=== PATIENT | female | born 1990 | race Caucasian/White ===

== ENCOUNTER 2018-07-21 17:09 | Emergency (ER) | payer SELFPAY ==
[~2018-07-21] VITALS: Ht 162.6 cm; Wt 58.6 kg
[2018-07-21 17:13] VITALS: BP 122/69
--- NOTE | 2018-07-21 17:14 | NUR ---
28 YO F BIB FAMILY W/ C/O LEFT SIDED VAGINAL PAIN 8/10 AND SWELLING X 2 DAYS. PT ALSO STATES THAT SHE IS ON HER PERIOD AT THIS TIME, UNSURE IF SHE HAS ANY ABNORMAL DISCHARGE. DENIES N/V. AAOX4, GCS 15. PT JUST ARRIVED IN [place] [facility] 8 DAYS AGO. PT DENIES N/V/D; SKIN IS INTACT, PINK/WARM/DRY; AAOX4, PERRL, WITH EVEN AND STEADY GAIT; LUNGS CLEAR BL, BREATHING UNLABORED; HR EVEN AND REGULAR, BL PERIPHERAL PULSES PRESENT; BS ACTIVE X4. PT DENIES ANY FEVER, CP, SOB, OR COUGH AT THIS TIME; PT STATES 0/10 PAIN AT THIS TIME; VSS; PATIENT POSITIONED FOR COMFORT; HOB ELEVATED; BEDRAILS UP X2; BED DOWN. HX SAME ISSUE 2X, BEEN HOSPITALIZED BOTH TIMES RX DENIES
--- NOTE | 2018-07-21 18:30 | NUR ---
PT. RESTING COMFORTABLY IN BED, RR EVEN AND UNLABORED. FAMILY MEMBER AT BEDSIDE. WILL CONTINUE TO MONITOR.
[2018-07-21] MEDS ORDERED: HYDROcodone/APAP 5/325 MG 1 TAB TAB PO ONE (18:35)
[2018-07-21] MEDS ORDERED: LIDOCAINE 1% 500 MG/50 ML VIAL INJ SCH (18:35)
[2018-07-21] MEDS ORDERED: LIDOCAINE MPF 1% - 5 mL VIAL 5 ML ONE (18:43)
--- NOTE | 2018-07-21 19:10 | NUR ---
Pt report given to MITUL QUEEN . Transfer of care at this time.
--- NOTE | 2018-07-21 19:15 | NUR ---
RECEIVED REPORT FROM AM NURSE. PT RESTING COMFORTABLY IN BED. PT'S SIGNIFICANT OTHER AT BEDSIDE. ALL NEEDS MET AT THIS TIME.
--- NOTE | 2018-07-21 19:30 | NUR ---
NELLY VERA AT BEDSIDE
[2018-07-21 20:00] VITALS: BP 101/70
--- NOTE | 2018-07-21 20:00 | NUR ---
Patient discharged with v/s stable. Written and verbal after care instructions given and explained. Patient alert, oriented and verbalized understanding of instructions. Ambulatory with steady gait. All questions addressed prior to discharge. ID band removed. Patient advised to follow up with PMD. Rx of BACTRIM, IBUPROFEN, NORCO given. Patient educated on indication of medication including possible reaction and side effects. Opportunity to ask questions provided and answered.
== END 2018-07-21 20:00 | disposition home or self-care (01) ==
LOC: MED 17:09
DX: N75.1 Abscess of Bartholin's gland (principal)
CPT/HCPCS: 56420; 99283; J2001

== ENCOUNTER 2018-07-23 07:26 | Emergency (ER) | payer SELFPAY ==
[~2018-07-23] VITALS: Ht 157.5 cm; Wt 59.0 kg
[2018-07-23 07:41] VITALS: BP 113/71
--- NOTE | 2018-07-23 07:45 | NUR ---
28 YO FEMALE BIB SELF FOR LEFT LOWER ABDOMINAL PAIN FROM SURGICAL SITE . DENIES N/V/D; SKIN IS PINK/WARM/DRY; AAOX4 WITH EVEN AND STEADY GAIT; LUNGS CLEAR BL; HR EVEN AND REGULAR; PT DENIES ANY FEVER, CP, SOB, OR COUGH AT THIS TIME; PATIENT STATES PAIN OF 9/10 AT THIS TIME; VSS; PATIENT POSITIONED FOR COMFORT; HOB ELEVATED; BEDRAILS UP X2; BED DOWN. ER MD MADE AWARE OF PT STATUS.
[2018-07-23] MEDS ORDERED: MORPHINE SULFATE 4 MG/ML SYR IM ONE (08:05)
--- NOTE | 2018-07-23 08:25 | NUR ---
PT STATED PAIN RELIEVED.
[2018-07-23 08:28] VITALS: BP 113/71
--- NOTE | 2018-07-23 08:28 | NUR ---
Patient discharged with v/s stable. Written and verbal after care instructions given and explained. Patient alert, oriented and verbalized understanding of instructions. Wheel Chair Assisted with to car. All questions addressed prior to discharge. ID band removed. Patient advised to follow up with PMD. Rx of KEFLEX AND NORCO given. Patient educated on indication of medication including possible reaction and side effects. Opportunity to ask questions provided and answered.
== END 2018-07-23 08:28 | disposition home or self-care (01) ==
LOC: MED 07:26
DX: N75.1 Abscess of Bartholin's gland (principal); G89.18 Other acute postprocedural pain
CPT/HCPCS: 96372; 99283; J2270